=== PATIENT | male | born 1950 | race Caucasian/White ===

== ENCOUNTER 2020-02-22 17:36 | Emergency (ER) | payer MEDICARE, SELFPAY ==
[2020-02-22 17:56] VITALS: BP 193/110; PULSE 88; RESP 18; TEMP 36.6; O2SAT 99
[2020-02-22] MEDS: TETANUS,DIPHTHERIA,AC PERTUSSIS ADULT 0.5 ML (ADACEL) IM (18:10)
--- NOTE | 2020-02-22 18:18 | ED.WOUNDLAC ---
HPI - Wound/Laceration General Chief Complaint: Wound/Laceration Stated Complaint: index finger lac Source: patient History of Present Illness HPI narrative: this is a 69-year-old gentleman that presents after he was doing some woodworking at home and cut his left index finger causing an avulsion injury with a flap. The patient is currently on Plavix and did have some bleeding to the from the finger site. And there is some mild pain pressure dressing was placed patient was not up-to-date with his tetanus and during this visit he received at a cell and updated his tetanus vaccine. Otherwise there is no numbness or tingling in the finger and hand. Onset (ago): hour(s) Extremity Location: Left: hand ( avulsion injury to left index finger) Place: home Patient tetanus UTD: No Context: accidental Associated symptoms: pain Related Data Home Medications Medication Instructions Recorded Confirmed aspirin 81 mg tablet,delayed 81 mg PO DAILY 01/10/19 02/22/20 release Allergies Allergy/AdvReac Type Severity Reaction Status Date / Time losartan AdvReac Intermediate fatigue, Verified 08/24/19 09:07 weakness lisinopril AdvReac Intermediate weakness Uncoded 08/24/19 09:07 BLE Review of Systems Review of Systems: All systems reviewed & are unremarkable except as noted in HPI and below PMFSH Past Medical History Medical History BP (high blood pressure) CAD (coronary artery disease) DONNIE (generalized anxiety disorder) Mixed hyperlipidemia SOLOMON on CPAP Vitamin D deficiency Surgical History Surgical History History of carpal tunnel surgery S/P angioplasty with stent S/P cubital tunnel release Family History Family History Father Acute myocardial infarction, Onset Age: 68 Sibling Family history of respiratory disorder Patient's sister is in good health Mother Family history of malignant neoplasm of breast in first degree relative Patient's mother is , Onset Age: 88 Other Family history of elevated blood lipids Social History Social History Smoking packs per day: 1 Smoking cigarettes per day: 20.0 Years smoked: 10 Smoking pack-years: 10.00 Smoking status: Former smoker Tobacco type: cigarettes Second hand tobacco smoke exposure: No Smoking end date: 02/15/82 Alcohol intake: current Drinks per week: 0 Substance use: never Substance use type: does not use Gender identity (if verbalized by the patient): Male Exam Const: General: no acute distress and alert Orientation/consciousness: patient oriented x3 HENMT: Head: normal to inspection Eyes: Conjunctivae: conjunctivae normal Pupils: Equal, round and reactive pupils present Neck: Neck: normal visual inspection, no lymphadenopathy and no meningeal signs Chest: Chest palpation & inspection: normal inspection of the chest Resp: Effort & Inspection: normal respiratory effort Auscultation: clear to auscultation bilaterally Cardio: Rate: regular rate Rhythm: regular rhythm GI: GI Palp: Yes Soft to palpation Back/Spine/Pelvis: Back: no CVA tenderness Skin: General skin exam: normal color Rashes: no rashes Neuro: General: patient oriented x3 and moves all extremities Extrem: General: normal to inspection Other: Avulsion injury to the lateral aspect of his left index finger Course Course Emergency Course: I did remove the excess flap and a place Surgicel on the on the finger and apply dressing. Vital Signs Vital signs: Vital Signs Temperature 36.6 C 02/22/20 17:56 Pulse Rate 88 02/22/20 17:56 Respiratory Rate 18 02/22/20 17:56 Blood Pressure 193/110 H 02/22/20 17:56 Pulse Oximetry 99 02/22/20 17:56 Temperature 36.6 C 02/22/20 17
[2020-02-22 18:28] VITALS: BP 121/91; PULSE 65
== END 2020-02-22 18:28 | disposition home or self-care (01) ==
PROVIDERS: Emergency Provider Emergency Medicine; PCP Family Medicine
DX: S61.211A Laceration without foreign body of left index finger without damage to nail, initial encounter (principal); W45.8XXA Other foreign body or object entering through skin, initial encounter
CPT/HCPCS: 12001; 90471; 90715; 99282

== ENCOUNTER 2021-08-08 09:23 | Outpatient (CLI) | payer MEDICARE, SELFPAY ==
--- NOTE | ~2021-08-08 | XR_ITS ---
EXAMINATION: XR hip LT min 3V w AP pelvis DATE: 08/08/2021 09:48 INDICATION: Left hip pain TECHNIQUE: AP view the pelvis and three views of left hip were obtained. COMPARISON: None. FINDINGS: Bone alignment is normal. There is no fracture. There is mild osteoarthritis of the hips. T he soft tissues are unremarkable. Moderate spondylosis is noted in the visualized lumbar spine. IMPRESSION: 1. Mild osteoarthritis without acute osseous abnormality. Reviewed, dictated and finalized at location F.
== END 2021-08-08 09:24 | disposition home or self-care (01) ==
LOC: ANHIMG 09:26
PROVIDERS: PCP Family Medicine; Visit Provider Family Medicine
DX: M25.552 Pain in left hip (principal); R03.0 Elevated blood-pressure reading, without diagnosis of hypertension; M16.12 Unilateral primary osteoarthritis, left hip
CPT/HCPCS: 73502

== ENCOUNTER 2022-04-06 | Day surgery (SDC) | payer MEDICARE, SELFPAY ==
[2022-03-25 13:36] VITALS: BMI 34.1
--- NOTE | 2022-04-05 12:51 | PM.HPGS ---
History of Present Illness History of Present Illness Consent: Risks, benefits, and alternatives have been discussed and questions answered. Patient agrees to proceed with procedure. Chief complaint: neoplasm screening Narrative: Dheeraj Gage is a 71 year old male referred for colon cancer screening. About 9 years ago he had 2 polyps removed. Review of Systems Review of Systems: All systems reviewed & are unremarkable except as noted in HPI and below PMFSH Past Medical History Medical History BP (high blood pressure) CAD (coronary artery disease) CAD in [place] artery Elevated blood pressure reading Essential (primary) hypertension DONNIE (generalized anxiety disorder) Mixed hyperlipidemia Mixed hyperlipidemia SOLOMON (obstructive sleep apnea) SOLOMON on CPAP Screening PSA (prostate specific antigen) Vitamin D deficiency Surgical History Surgical History History of carpal tunnel surgery S/P angioplasty with stent S/P cubital tunnel release Family History Family History Father Acute myocardial infarction, Onset Age: 68 Sibling Family history of respiratory disorder Patient's sister is in good health Mother Family history of malignant neoplasm of breast in first degree relative Patient's mother is , Onset Age: 88 Other Family history of elevated blood lipids Social History Social History Social History: Smoking packs per day: 1 Smoking cigarettes per day: 20.0 Years smoked: 10 Smoking pack-years: 10.00 Smoking status: Former smoker Tobacco type: cigarettes Second hand tobacco smoke exposure: No Smoking end date: 02/15/82 Alcohol intake: former Substance use: never Substance use type: does not use Living arrangements: with family Occupation/Education: retired Additional occupation/education comments: 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 Gender identity (if verbalized by the patient): Male Sexual Orientation (if Verbalized by the Patient): Straight or Heterosexual Spiritual care concerns: No Meds Home Medications and Allergies Home Medications Medication Instructions Recorded Confirmed Type aspirin 81 mg tablet,delayed 81 mg PO DAILY 01/10/19 03/25/22 History release (Adult Low Dose Aspirin) ergocalciferol (vitamin D2) 1,250 50,000 unit PO WEEKLY #14 caps 12/09/19 03/25/22 Rx mcg (50,000 unit) capsule rosuvastatin 5 mg tablet See Rx Instructions .Route 09/01/21 03/25/22 Rx .COMPLEX #80 tabs coQ10 (ubiquinol) 100 mg capsule 100 mg PO DAILY 03/25/22 03/25/22 History escitalopram oxalate 10 mg tablet 5 mg PO DAILY 03/25/22 03/25/22 History clopidogrel 75 mg tablet See Rx Instructions .Route 03/26/22 04/06/22 Rx .COMPLEX #100 tabs Allergies Allergy/AdvReac Type Severity Reaction Status Date / Time lisinopril AdvReac Intermediate weakness Verified 04/06/22 09:45 BLE losartan AdvReac Intermediate fatigue, Verified 04/06/22 09:45 weakness Exam Const: General: alert Orientation/consciousness: patient oriented x3 Resp: Auscultation: clear to auscultation bilaterally Cardio: Rhythm: regular rhythm GI: GI Palp: Yes Soft to palpation and No Tenderness to palpation present (GI) Neuro: General: patient oriented x3 Assessment and Plan Assessment and plan (1) Colon cancer screening: Code(s): Z12.11 - Encounter for screening for malignant neoplasm of colon Status: Acute Assessment and Plan: Colonoscopy with possible biopsy or polypectomy or cautery or injection of substances.
[2022-04-06 09:46] VITALS: BP 133/75; PULSE 46; RESP 18; TEMP 36.3; O2SAT 100
--- NOTE | 2022-04-06 09:55 | WPDANESEPPF ---
Anes - Initial Pre Proc Eval Procedure: Operation Date: 04/06/22 11:00 Proposed Procedures p Screening Colonoscopy - Seth Aldrich MD Date/Time: 04/06/22 09:55 Surgeon: Seth Aldrich MD Pre Op Diagnosis: neoplasm screening Patient Data Age: 71 Gender: M Height: 1.8 m Weight: 111.3 kg Last Vital Signs Temp 36.3 C L 04/06/22 09:46 Pulse 46 L 04/06/22 09:46 Resp 18 04/06/22 09:46 BP 133/75 04/06/22 09:46 Pulse Ox 100 04/06/22 09:46 O2 Del Method Room Air 04/06/22 09:46 Allergies Allergy/AdvReac Type Severity Reaction Status Date / Time lisinopril AdvReac Intermediate weakness Verified 04/06/22 09:45 BLE losartan AdvReac Intermediate fatigue, Verified 04/06/22 09:45 weakness Home Medications Medication Instructions Recorded Confirmed Type aspirin 81 mg tablet,delayed 81 mg PO DAILY 01/10/19 03/25/22 History release (Adult Low Dose Aspirin) ergocalciferol (vitamin D2) 1,250 50,000 unit PO WEEKLY #14 caps 12/09/19 03/25/22 Rx mcg (50,000 unit) capsule rosuvastatin 5 mg tablet See Rx Instructions .Route 09/01/21 03/25/22 Rx .COMPLEX #80 tabs coQ10 (ubiquinol) 100 mg capsule 100 mg PO DAILY 03/25/22 03/25/22 History escitalopram oxalate 10 mg tablet 5 mg PO DAILY 03/25/22 03/25/22 History clopidogrel 75 mg tablet See Rx Instructions .Route 03/26/22 04/06/22 Rx .COMPLEX #100 tabs Patient hx anesthesia problems: none Family hx anesthesia problems: none Results Review: All pre-operative results and documents have been reviewed as part of the pre-operative evaluation. PENDING SALE TO [facility] Past Medical History Medical History BP (high blood pressure) CAD (coronary artery disease) CAD in [place] artery Elevated blood pressure reading Essential (primary) hypertension DONNIE (generalized anxiety disorder) Mixed hyperlipidemia Mixed hyperlipidemia SOLOMON (obstructive sleep apnea) SOLOMON on CPAP Screening PSA (prostate specific antigen) Vitamin D deficiency Surgical History Surgical History History of carpal tunnel surgery S/P angioplasty with stent S/P cubital tunnel release Family History Family History Father Acute myocardial infarction, Onset Age: 68 Sibling Family history of respiratory disorder Patient's sister is in good health Mother Family history of malignant neoplasm of breast in first degree relative Patient's mother is , Onset Age: 88 Other Family history of elevated blood lipids Social History Social History Social History: Smoking packs per day: 1 Smoking cigarettes per day: 20.0 Years smoked: 10 Smoking pack-years: 10.00 Smoking status: Former smoker Tobacco type: cigarettes Second hand tobacco smoke exposure: No Smoking end date: 02/15/82 Alcohol intake: former Substance use: never Substance use type: does not use Living arrangements: with family Occupation/Education: retired Additional occupation/education comments: 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 Gender identity (if verbalized by the patient): Male Sexual Orientation (if Verbalized by the Patient): Straight or Heterosexual Spiritual care concerns: No Anes - Eval Final PreProcedure Day of Procedure 04/06/22 09:55 Patient weight: obese Heart: regular rate and rhythm Lungs: clear to auscultation and normal air movement Airway: Mallampati scale class II Neurological: alert and oriented Last oral intake: >/= 8 hours ASA classification: III Emergent: no Anesthetic plan: proceed Anesthesia type and monitoring: general GIVS Results Review: All pre-operative results and documents have been reviewed as part of the pre-operative evaluation. Informed Consent: The patient's anesthetic
[2022-04-06] MEDS: LACTATED RINGERS 1,000 ML 150 ML IV CONT (09:56)
[2022-04-06 11:18] VITALS: BP 115/75; PULSE 44; RESP 18; O2SAT 96
[2022-04-06 11:28] VITALS: BP 115/69; PULSE 47; RESP 18; O2SAT 98
[2022-04-06 11:38] VITALS: BP 124/76; PULSE 44; RESP 18; O2SAT 98
== END 2022-04-06 11:45 | disposition home or self-care (01) ==
PROVIDERS: PCP Family Medicine; Visit Provider Internal Medicine Gastroenterology
PROC: 0DJD8ZZ Inspection of Lower Intestinal Tract, Via Natural or Artificial Opening Endoscopic (ICD-10-PCS; CPT 45378; principal; 2022-04-06 11:00)
DX: Z12.11 Encounter for screening for malignant neoplasm of colon (principal); K62.1 Rectal polyp; K57.30 Diverticulosis of large intestine without perforation or abscess without bleeding; I25.10 Atherosclerotic heart disease of native coronary artery without angina pectoris; E78.2 Mixed hyperlipidemia; I10 Essential (primary) hypertension; G47.33 Obstructive sleep apnea (adult) (pediatric); E55.9 Vitamin D deficiency, unspecified; F41.1 Generalized anxiety disorder; Z79.02 Long term (current) use of antithrombotics/antiplatelets; Z79.82 Long term (current) use of aspirin; Z87.891 Personal history of nicotine dependence; E66.9 Obesity, unspecified; Z68.34 Body mass index [BMI] 34.0-34.9, adult
CPT/HCPCS: 45385; 88305; J2704; J7120

== ENCOUNTER 2022-08-13 13:22 | Outpatient (CLI) | payer MEDICARE, SELFPAY ==
--- NOTE | ~2022-08-13 | US_ITS ---
EXAMINATION: US art doppler w press LE BI DATE: 08/13/2022 14:10 INDICATION: Peripheral vascular disease TECHNIQUE: Segmental pressures and plethysmographic and Doppler waveforms of the brachial and lower e xtremity arteries were obtained. COMPARISON: None. FINDINGS: Right and left brachial artery pressures of 161 mm Hg and 153 mm Hg, respectively, are concordant (no rmal difference <= 30 mmHg). The right and left high-thigh pressure indices are unable to be obtained due to inability to occlude the vessels in either leg a sagittally dorsalis pedis arteries . The right ankle-brachial index (MARY) is 1.14 (normal >= 0.9-1). The right great toe-brachial index (T BI) is 0.63 (normal >= 0.6-0.8). Arterial waveforms are biphasic in the right dorsalis pedis artery a nd triphasic in the remaining arteries with brisk systolic upstrokes throughout. The left MARY is 1.17. The left TBI is 0.73. Arterial waveforms are triphasic in the left common femor al and left posterior tibial arteries and biphasic in the remaining arteries with brisk systolic upst rokes throughout. IMPRESSION: 1. Normal ABIs and TBIs bilaterally. No significant occlusive disease. Reviewed, dictated and finalized at location A.
== END 2022-08-13 13:23 | disposition home or self-care (01) ==
PROVIDERS: PCP Family Medicine; Visit Provider Nurse Practitioner Gerontology
DX: I73.9 Peripheral vascular disease, unspecified (principal)
CPT/HCPCS: 93923

== ENCOUNTER 2022-09-25 07:13 | Outpatient (CLI) | payer MEDICARE, SELFPAY ==
[2022-09-25 07:49] LABS: Cholesterol 226 mg/dL (0-200); HDL Direct 35 mg/dL; Triglycerides 157 mg/dL (<150)
[2022-09-25 08:01] LABS: LDL Cholesterol Direct 152 mg/dL
== END 2022-09-25 07:14 | disposition home or self-care (01) ==
PROVIDERS: PCP Family Medicine; Visit Provider Physician Assistant
DX: E78.2 Mixed hyperlipidemia (principal)
CPT/HCPCS: 36415; 80061

== ENCOUNTER 2023-03-22 09:56 | Outpatient (CLI) | payer MEDICARE, SELFPAY ==
[2023-03-22 10:46] LABS: Basophils Percent Auto 0.5 % (0.2-1.2); Eosinophils Absolute Auto 0.2 K/mm3 (0-0.3); Eosinophils Percent Auto 3.5 % (0-4.4); Hematocrit 46.3 % (42.0-52.0); Immature Granulocyte Absolute 0.02 K/mm3 (0.00-0.031); Immature Granulocyte Percent A 0.3 % (0-0.5); Lymphocytes Absolute Auto 1.46 K/mm3 (0.9-3.2); Lymphocytes Percent Auto 24.3 % (18.3-44.2); Mean Corpuscular HGB Conc 32.4 g/dl (32-36); Mean Corpuscular Hemoglobin 28.5 pg (26-34); Mean Corpuscular Volume 87.9 fl (80-100); Mean Platelet Volume 9.3 fl (7.4-10.4); Monocytes Absolute Auto 0.4 K/mm3 (0.1-0.6); Monocytes Percent Auto 7.3 % (2.6-8.5); Neutrophils Absolute Auto 3.9 K/mm3 (1.3-6.7); Neutrophils Percent Auto 64.1 % (45.5-73.1); Platelet Count Result 245 k/mm3 (150-375); Red Blood Count 5.27 M/mm3 (4.6-6.20); Red Cell Distribution Width 13.4 % (11.5-14.5)
[2023-03-22 10:57] LABS: Alanine Aminotransferase 49 U/L (6-50); Albumin Level 4.3 g/dL (3.5-5.1); Alkaline Phosphatase 75 U/L (38-126); Anion Gap 4 mmol/L (8-16); Aspartate Amino Transferase 36 U/L (17-59); Bilirubin,Total 1.1 mg/dL (0.2-1.3); Blood Urea Nitrogen 16 mg/dL (9-20); Calcium 9.2 mg/dL (8.4-10.2); Carbon Dioxide 31 mmol/L (22-30); Chloride 106 mmol/L (98-107); Cholesterol 229 mg/dL (0-200); Estimated Glomerular Filt Rate > 60; Glucose 95 mg/dL (65-110); HDL Direct 40 mg/dL; Potassium 4.1 mmol/L (3.4-5.0); Sodium 141 mmol/L (137-145); Triglycerides 205 mg/dL (<150)
[2023-03-22 11:08] LABS: LDL Cholesterol Direct 142 mg/dL
[2023-03-24 14:24] LABS: PSA, Free 0.52 ng/mL; PSA, Total 2.7 ng/mL (<=4.0); Percent Free Prostate Spec Ag 19 % (>25)
== END 2023-03-22 09:57 | disposition home or self-care (01) ==
LOC: ANHLAB 09:59
PROVIDERS: PCP Family Medicine; Visit Provider Family Medicine
DX: N40.1 Benign prostatic hyperplasia with lower urinary tract symptoms (principal); I10 Essential (primary) hypertension; E78.2 Mixed hyperlipidemia
CPT/HCPCS: 36415; 80053; 80061; 84153; 84154; 85025

== ENCOUNTER 2023-12-21 09:21 | Outpatient (CLI) | payer MEDICARE, SELFPAY ==
[2023-12-21 09:33] LABS: Hematocrit 43.5 % (37.0-46.0); Hemoglobin 14.6 g/dL (12.4-15.3); Mean Corpuscular HGB Conc 33.6 g/dL (32-36); Mean Corpuscular Hemoglobin 28.6 pg (27.0-31.0); Mean Corpuscular Volume 85.3 fL (78.0-102.0); Platelet Count Result 263 K/mm3 (150-420); Red Cell Distribution Width 12.9 % (11.6-14.4); White Blood Count 6.7 K/mm3 (4.8-10.8)
[2023-12-21 10:54] LABS: Alanine Aminotransferase 24 U/L (16-63); Albumin Level 3.8 g/dL (3.4-5.0); Alkaline Phosphatase 77 U/L (46-116); Anion Gap 8 mmol/L (4-12); Aspartate Amino Transferase 15 U/L (15-37); Blood Urea Nitrogen 11 mg/dL (7-18); Calcium 9.1 mg/dL (8.5-10.1); Carbon Dioxide 30 mmol/L (21-32); Chloride 105 mmol/L (98-108); Cholesterol 162 mg/dL (0-200); Estimated Glomerular Filt Rate > 60; Glucose 86 mg/dL (70-99); HDL Direct 45 mg/dL (40-60); LDL Cholesterol Calculated 95 mg/dL (<130); Osmolality Calculated 294 mOsm/kg (285-295); Potassium 4.4 mmol/L (3.5-5.1); Sodium 143 mmol/L (136-145); Total Protein 6.6 g/dL (6.4-8.2); Triglycerides 108 mg/dL (0-150)
== END 2023-12-21 09:22 | disposition home or self-care (01) ==
LOC: CHSLAB 09:23
PROVIDERS: PCP Family Medicine; Visit Provider Physician Assistant
DX: E78.5 Hyperlipidemia, unspecified (principal); I10 Essential (primary) hypertension
CPT/HCPCS: 36415; 80053; 80061; 85027

== ENCOUNTER 2024-07-25 16:02 | Outpatient (CLI) | payer MEDICARE, SELFPAY ==
--- OUTSIDE RECORDS SUMMARY | 2024-07-25 17:10 | XMS_ITS | Referral Summary ---
Author Organization [facility] Address [address] [place] [address] Care Team Providers Care Civil Division Commander Deputy Sheriff Name Role Phone Ellen Serrano MD Primary Care Provider Allergies No known active allergies Medications ergocalciferol (VITAMIN D2) 50,000 unit capsule take 1 capsule by oral route every week 0 0 3 Active Additional Information Patient taking differently: 2,000 Units, Reported on 10/28/2021 aspirin (ASPIR-81) 81 mg tablet take 1 tablet by oral route every day 0 0 5 Active clopidogrel (PLAVIX) 75 mg tabletIndicatio ns:Thrombosis Prevention after PCI Take 1 tablet (75 mg total) by mouth daily. 90 tablet 3 8 Active escitalopram (LEXAPRO) 5 mg tablet 1 tablet (5 mg total) 1 Active doxazosin (CARDURA) 2 mg tablet Take 1 tablet (2 mg total) by mouth daily Active furosemide (LASIX) 20 mg tablet Take 1 tablet (20 mg total) by mouth public safety director before breakfast Active pravastatin sodium (PRAVASTATIN ORAL) Take 5 mg by mouth nightly Active Active Problems Problem Noted Date Diagnosed Date Morbid (severe) obesity due to excess calories 0 09/01/2022 Coronary artery disease invo lving [place] coronary artery of [place] heart without angina pectoris 10/15/2016 S/P coronary artery stent placement 10/15/2016 Knee pain 12/06/2015 Need for prophylactic antibiotic 10/07/2015 Arthritis of knee 09/10/2015 Social History Tobacco Use Types Packs/Day Years Used Date Smoking Tobacco: Former Smokeless Tobacco: Never Tobacco Cessation:Counseling Given: Not Answered Alcohol Use Standard Drinks/Week Comments Yes 0 (1 standard drink = 0.6 oz pur e alcohol) Sex and Gender Information Value Date Recorded Sex Assigned at Not on file 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 Gender Identity Male 2021 1:28 PM CDT Sexual Orientation Straight 2021 1: 28 PM CDT Last Filed Vital Signs Vital Sign Reading Time Taken Comments Blood Pressure 116/70 10/19/2023 1:01 PM CDT Pulse 49 10/19/2023 1:01 PM CDT Temperature - - Respiratory Rate 18 10/15/2016 10:0 4 AM CDT Oxygen Saturation 91% 10/19/2023 1:01 PM CDT Inhaled Oxygen Concentration - - Weight 100.6 kg (221 lb 12.8 oz) 10/19/2023 1:01 PM CDT Height 180.3 cm (5' 11) 10/19/2023 1:01 PM CDT Body Mass Index 30.93 10/19/2023 1:01 PM CDT Plan of Treatment Not on file Insurance [facility] MEDIC[facility] ADVANTAGE [facility] MEDIC[facility] ADVANTAGE Care Teams Civil Division Commander Deputy Sheriff Relationship Specialty Start Date End Date Ellen Serrano MD [address] [facility] [address] [place] [address] PCP - General Family Medicine 05/10/18
--- OUTSIDE RECORDS SUMMARY | 2024-07-25 17:10 | XMS_ITS | Continuity of Care Document ---
Author Organization [facility] Address [address] [facility] [address] [place] [address] Phone Care Team Providers Care Yard Operator Name Role Phone Sha Whittaker MD Unavailable Unavailable Allergies, Adverse Reactions, Alerts Substance Reaction Status Criticality No Known Allergies Active No Inform ation Medications Medication Instructions Dosage Effective Dates (start - stop) Status Comments PLAVIX (unknown strength) Not Available - Active OMEGA-3 (unknown strength) Not Available - Active LOW DOSE ASPIRIN EC (unknown strength) Not Available - Active Procedures Procedure Date OFFICE/OUTPATIENT VISIT EST OFFICE/OUTPATIENT VISIT EST OFFICE/OUTPATIENT VISIT EST Advance Directives Directive Yes / No Effective Date File Name No Information Encounters Encounter Description Practice Location Reason(s) For Visit Diagnoses Date Provider Providers Copied on Encounter OFFICE/OUTPAT IENT VISIT EST [facility], [address], [address], tel:[phone] [facility] Carpal tunnel syndrome of right wrist 6 Remedios Dalton. [address] [place], [place], [id number] . tel: [phone] OFFICE/OUTPAT IENT VISIT EST [facility], [address] [place] [address], [address], tel:[phone] [facility] Carpal tunnel syndrome, unspecified upper limb 5 Bashir Lang. [address] [place], [place] [id number], [place], [place], [id number] , [place]. tel: [phone] OFFICE/OUTPAT IENT VISIT EST [facility], [address] [facility] [address], [place], [address], [place] tel:[phone] [facility] [place] Carpal tunnel syndrome 0-201 [address] Remedios Dalton. [address] [facility], [place], [place], [id number] . tel: [phone] Family History Family Member Type Diagnosis Age At Onset Father Problem (finding) Father Problem (finding) Heart disease (Cause Of ) Payers Payer name Insurance type Covered constitution party ID Authoriza tion(s) Medicare E2 OT [id number] Aetna Choice POS II E2 OT [id number] Social History Type Description Quantity Date Captured Comments Alcohol Use Details Unknown Caffeine Use Details Unknown Tobacco Use Status Never smoked tobacco 2015 Smoking Status Never smoker Non-Smoking Tobacco Use Details : No Details Available : No Details Available Sex Male Vital Signs Date / Time: Height Weight BMI Pulse Rate Blood Pressure Temperature Respiratory Rate Body Surface Area Head Circumference Head Circ. Percentile Wt./Corey. Percentile BMI percentile Pulse Ox Inhaled Ox 11:19 AM 71.00 in 99.790 kg (220.00 lbs) 30.6 8 kg/m eter (2) 135/68 mm[Hg] Chief Complaint And Reason For Visit No Information Reason For Referral Reason For Referral No Information History Of Present Illness Encounter Date Complaint History Of Prese nt Illness No Information Functional Status Date Functional Assessmen t No Information Instructions Date Instruction Additional Infor mation Apply ice as instructed. Related to Carpal tunnel syndrome of right wrist Activity as tolerated. Related t o Carpal tunnel syndrome of right wrist Apply ice or heat as tolerated. Related to Carpal tunnel syndrome of right wrist Activity as tolerated. Related t o Carpal tunnel syndrome, unspecified upper limb Take medications as directed. Re lated to Carpal tunnel syndrome, unspecified upper limb Assessments Type Assessment Date assessment Carpal tunnel syndrome of right wrist Patient Care Teams Name Effective Dates (start - stop) Status Members No Information
--- OUTSIDE RECORDS SUMMARY | 2024-07-25 17:10 | XMS_ITS | Clinical Summary ---
Author Organization [facility] Address [address] [place] [address] Care Team Providers Care Lead Applications Developer Name Role Phone Ellen Serrano MD Primary [...] 1 tablet (20 mg total) by mouth condenser tester before breakfast Active pravastatin sodium (PRAVASTATIN ORAL) Take 5 mg by mouth nightly Active Active Problems Problem Noted Date Diagnosed Date Morbid (severe) obesity due to excess calories 0 09/01/2022 Coronary artery disease invo lving [place] coronary artery of [place] heart without angina pectoris 10/15/2016 S/P coronary artery stent placement 10/15/2016 Knee pain 12/06/2015 Need for prophylactic antibiotic 10/07/2015 Arthritis of knee 09/10/2015 Surgical History Surgery Date Site/Laterality Comments CORONARY STENT PLACEMENT LUMBAR PUNCTURE WO INJECTION, DIAGNOSTIC 08/12/2022 N/A LUMBAR PUNCTURE WO INJECTION, DIAGNOSTIC 10/07/2023 N/A Medical History Medical History Date Comments Hx Other Medical dyslipidemia Coronary artery disease Family History Medical History Relation Name Comments Heart attack Father 2 Myocardial Infa rction; Relation Name Status Comments Father 1 Alive Father 2 Social History Tobacco Use Types Packs/Day Years Used Date Smoking Tobacco: Former Smokeless Tobacco: Never Tobacco Cessation:Counseling Given: Not Answered Alcohol Use Standard Drinks/Week Comments Yes 0 (1 standard drink = 0.6 oz pur e alcohol) Sex and Gender Information Value Date Recorded Sex Assigned at Not on file 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 Gender Identity Male 2021 1:28 PM CDT Sexual Orientation Straight 2021 1: 28 PM CDT Obstetrics History Last Filed Vital Signs Vital Sign Reading [...] 10/19/2023 1:01 PM CDT Plan of Treatment Health Maintenance Due Date Last Done Comments Colon Cancer Screening-Colonoscopy 1950 Depression Screening 1952 Fall Risk Assessment 1950 Hepatitis C Screening 1950 Hepatitis B Screening 1970 Pneumococcal vaccine 65+ (2 of 2 - PCV) 11/27/2006 11/27/2005 DTaP/Tdap/Td Vaccine (1 - Tdap) 05/25/2007 8 Zoster Vaccine (2 of 3) 03/21/2014 01/24/2014 Abdominal Aortic Aneurysm (A AA) Screen 2017 Well Visit 65+ 2017 Influenza Vaccine (Season Ended) 2024 11/24/2016, 12/02/2015, 12/27/2014, Additional history exists Insurance Member Subscriber Plan / Payer (Ef fective 2022-Present) Name:Dheeraj Gage Relation to Subscriber:Self Name:Too Dheeraj Payer ID:[id number] (NAIC) Type:[facility] MED[facility] Address: [place] [phone] Care Teams Lead Applications Developer Relationship Specialty Start Date End Date Ellen Serrano MD [address] [facility] [address] [place] [id number] PCP - General Family Medicine 05/10/18
[2024-07-25 17:12] LABS: Alanine Aminotransferase 12 U/L (6-50); Alkaline Phosphatase 62 U/L (38-126); Anion Gap 5 mmol/L (4-12); Aspartate Amino Transferase 24 U/L (17-59); Bilirubin,Total 0.6 mg/dL (0.2-1.3); Blood Urea Nitrogen 11 mg/dL (9-20); Calcium 8.9 mg/dL (8.4-10.2); Carbon Dioxide 30 mmol/L (22-30); Chloride 107 mmol/L (98-107); Estimated Glomerular Filt Rate > 60; Glucose 90 mg/dL (65-110); Potassium 3.5 mmol/L (3.4-5.0); Sodium 142 mmol/L (137-145); Total Protein 6.5 g/dL (6.3-8.2)
== END 2024-07-25 16:03 | disposition home or self-care (01) ==
PROVIDERS: PCP Family Medicine; Visit Provider Physician Assistant
DX: E78.2 Mixed hyperlipidemia (principal); I10 Essential (primary) hypertension; B35.1 Tinea unguium
CPT/HCPCS: 36415; 80053

== ENCOUNTER 2025-02-06 08:02 | Outpatient (CLI) | payer MEDICARE, SELFPAY ==
--- OUTSIDE RECORDS SUMMARY | 2025-02-06 08:06 | XMS_ITS | Clinical Summary ---
Author Organization [facility] Address [address] [place] [address] Care Team Providers Care Latex Caster Name Role Phone Mark Schofield MD Primary Care Provider Allergies Active Allergy Reactions Criticality Noted Date Comments Lisinopril Other (See comments) High 02/18/2022 Losartan Fatigue High 02/18/2022 Medications ergocalciferol (VITAMIN D2) 50,000 unit capsule take 1 capsule by oral route every week 0 0 3 Active Additional Information Patient taking differently: 2,000 Units, Reported on 10/19/2024 aspirin (ASPIR-81) 81 mg tablet take 1 [...] 1 tablet (20 mg total) by mouth assistant buyer before breakfast Active pravastatin sodium (PRAVASTATIN ORAL) Take 5 mg by mouth nightly Active Active Problems Problem Noted Date Diagnosed Date Morbid (severe) obesity due to excess calories 0 09/01/2022 Coronary artery disease invo lving telida coronary artery of telida heart without angina pectoris 10/15/2016 S/P coronary artery stent placement 10/15/2016 Knee pain 12/06/2015 Need for prophylactic antibiotic 10/07/2015 Arthritis of knee 09/10/2015 Encounters Date Type Department Care Team Description 02/01/2025 Telephone [facility] Card[facility] [address] [place] [address] Jayjay Pierce MD medication recommendation from Last 3 Months Surgical History Surgery Date Site/Laterality Comments CORONARY [...] on file Legal Sex Male 1:46 AM [employer] Gender Identity Male 2021 1:28 PM CDT Sexual Orientation Straight 2021 1: 28 PM CDT Last Filed Vital Signs Vital Sign Reading Time Taken Comments Blood Pressure 102/66 10/19/2024 9:54 AM CDT Pulse 66 10/19/2024 9:54 AM CDT Temperature - - Respiratory Rate 18 10/15/2016 10:04 AM CDT Oxygen Saturation 99% 10/19/2024 9:54 AM CDT Inhaled Oxygen Concentration - - Weight 85 kg (187 lb 6.4 oz) 10/19/2024 9:54 AM CDT Height 180.3 cm (5' 11) 10/19/2024 9:54 AM CDT Body Mass Index 26.14 10/19/2024 9:54 AM CDT Plan of Treatment Health Maintenance Due Date Last Done Comments Colon Cancer Screening-Colonoscopy 1950 Depression Screening 1952 Fall Risk Assessment 1950 Hepatitis C Screening 1950 Hepatitis B Screening 1970 Pneumococcal vaccine 65+ (2 of 2 - PCV) 11/27/2006 11/27/2005 Zoster Vaccine (2 of 3) 03/21/2014 01/24/2014 Abdominal Aortic Aneurysm (A AA) Screen 2017 Well Visit 65+ 2017 Influenza Vaccine (#1) 2024 , 12/18/2019, 11/24/2016, Additional history exists DTaP/Tdap/Td Vaccine (2 - Td or Tdap) 02/21/2030 02/22/2020, 05/24/2007 Insurance [employer] MEDICARE ADVANTAGE Care Teams Latex Caster Relationship Specialty Start Date End Date Mark Schofield MD [address] [facility] [address] [place] [address] PCP - General Family Medicine 10/19/24
[2025-02-06 09:16] LABS: Prostate Specific Antigen 3.0 ng/mL (< OR = 4.0)
== END 2025-02-06 08:03 | disposition home or self-care (01) ==
PROVIDERS: PCP Family Medicine; Visit Provider Physician Assistant
DX: R35.1 Nocturia (principal); Z12.5 Encounter for screening for malignant neoplasm of prostate
CPT/HCPCS: 36415; 84153